=== PATIENT | male | born 1955 | race African-American/Black ===

== ENCOUNTER 2019-01-29 13:42 | Inpatient (IN) ==
[2019-01-29 14:43] LABS: Basophils % 0.5 % (0.0-0.8); Eosinophils # 0.1 10*3/uL (0.0-0.87); Eosinophils % 1.4 % (0.00-10.9); Hematocrit 41.1 VOL% (42.0-52.0); Hemoglobin 12.9 GM/DL (14.0-18.0); Immature Granulocytes % 0.3 %; Immature Granulocytes Absolute 0.02 #; Lymphocytes # 2.4 10*3/uL (1.4-4.0); Lymphocytes % 40.4 % (21.2-54.2); Mean Corpuscular HGB Conc 31.4 GM/DL (32-36); Mean Corpuscular Hemoglobin 28 PG (27-34); Mean Corpuscular Volume 89.9 FL (87-102); Mean Platelet Volume 9.5 FL (9.6-12.0); Monocytes % 17.1 % (1.7-12.7); Neutrophils # 2.4 10*3/uL (1.4-7.4); Neutrophils % 40.3 % (38.7-73.9); Platelet Count 236 T/CUMM (130-400); Red Blood Count 4.57 MC/CUMM (3.8-5.5); Red Cell Distribution Width 17.2 % (9.3-17.3); White Blood Count 5.9 T/CUMM (4-12)
[2019-01-29 14:50] LABS: Apearance,Urine CLEAR (Clear); Bilirubin,Urine Negative (Negative); Blood, Urine Negative (Negative); Glucose,Urine (UA) Negative (Negative); Hyaline Casts,Urine 5 /LPF (0-3); Ketones,Urine Negative (Negative); Mucus,Urine Occasional /LPF (Occasional); Nitrite,Urine Negative (Negative); Protein,Urine 100 MG/DL; RBC,Urine 2 /HPF (0-4); Squamous Epithelial Cell,Urine Occasional /HPF (0-10); Urine Color Yellow (Yellow); Urine Specific Gravity 1.024 (1.001-1.035); WBC,Urine 7 /HPF (0-6)
[2019-01-29 14:55] LABS: INR 1.7; PT Patient Result 18.8 SECS; Partial Thromboplastin Time 30.1 SECS (0-40)
[2019-01-29 15:07] LABS: Barbiturates Screen,Urine Negative (Negative); Benzodiazepines Screen,Urine Negative (Negative); Cannabinoid Screen,Urine Negative (Negative); Opiate Screen,Urine Negative (Negative); Phencyclidine Screen,Urine Negative (Negative)
[2019-01-29 15:10] LABS: Alanine Aminotransferase 30 U/L (16-61); Albumin 3.4 G/DL (3.4-5.0); Alkaline Phosphatase 121 U/L (45-117); Aspartate Amino Transferase 33 U/L (0-37); Blood Urea Nitrogen 31 MG/DL (7-18); Calcium 8.6 MG/DL (8.5-10.1); Glucose 171 MG/DL (74-106); Osmolality,Calculated 287.5 MOS/KG (273-304); Potassium 4.7 MMOL/L (3.5-5.1); Sodium 139 MMOL/L (136-145); Total Protein 7.6 G/DL (6.4-8.3)
[2019-01-29] MEDS ORDERED: ACETAMINOPHEN 500 MG TABLET ONE (15:52)
[2019-01-29] MEDS ORDERED: ACETAMINOPHEN 500 MG TABLET PO STA (15:55)
[2019-01-29 15:57] LABS: Eosinophils 5 % (0-10); Lymphocytes 45 % (20-55); Platelet Estimate Normal; Segmented Neutrophils 39 % (50-85)
[2019-01-29 15:58] LABS: Ovalocytes 2+
[2019-01-29 15:59] LABS: Anisocytosis 2+; Macrocytosis 1+; Microcytosis Slight
[2019-01-29 16:02] LABS: Polychromasia Slight; Spherocytes 1+; Total Cells Counted 100
[2019-01-29] MEDS ORDERED: DEXTROSE 50% 25 GM/50 ML VIAL IV PRN (17:57)
[2019-01-29] MEDS ORDERED: GLUCAGON 1 MG VIAL IM PRN (17:57)
[2019-01-29] MEDS ORDERED: ACETAMINOPHEN 325 MG TABLET PO PRN (17:57)
[2019-01-29] MEDS ORDERED: ONDANSETRON 4 MG/2 ML VIAL IV PRN (17:57)
[2019-01-29] MEDS ORDERED: MAGNESIUM HYDROXIDE SUSP 30 ML UDCUP PO PRN (17:57)
[2019-01-29] MEDS ORDERED: WARFARIN 5 MG TABLET PO STA (18:28)
[2019-01-29] MEDS: SODIUM CHLORIDE 0.9% 1,000 ML IV SCH (20:20)
[2019-01-29] MEDS: INSULIN LISPRO 100 UNIT/ML SUBCUT SCH (22:07)
[2019-01-29] MEDS: ASPIRIN EC 81 MG TABLET PO SCH (22:07)
[2019-01-29] MEDS: GABAPENTIN 300 MG CAPSULE PO SCH (22:07)
[2019-01-29] MEDS: DOCUSATE SODIUM 100 MG CAPSULE PO SCH (22:07)
[2019-01-30 04:50] LABS: INR 1.8
[2019-01-30 05:14] LABS: Calcium 8.3 MG/DL (8.5-10.1); Osmolality,Calculated 285.4 MOS/KG (273-304); Potassium 4.1 MMOL/L (3.5-5.1)
[2019-01-30 06:42] LABS: Folate 9.5 NG/ML (5.4-24.0)
[2019-01-30] MEDS: INSULIN LISPRO 100 UNIT/ML SUBCUT SCH ×4 (07:20→21:18)
[2019-01-30] MEDS: metFORMIN 500 MG TABLET PO SCH ×2 (10:40→19:03)
[2019-01-30] MEDS: SODIUM CHLORIDE 0.9% 1,000 ML IV SCH (10:40)
[2019-01-30] MEDS: SIMVASTATIN 40 MG TABLET PO SCH (10:41)
[2019-01-30] MEDS: PANTOPRAZOLE 40 MG TABLET PO SCH (10:41)
[2019-01-30] MEDS: GABAPENTIN 300 MG CAPSULE PO SCH ×2 (10:41→21:18)
[2019-01-30] MEDS: COLCHICINE 0.6 MG CAPSULE PO SCH (10:41)
[2019-01-30] MEDS: FLUoxetine 20 MG CAPSULE PO SCH (10:41)
[2019-01-30] MEDS: DOCUSATE SODIUM 100 MG CAPSULE PO SCH ×2 (10:42→21:18)
[2019-01-30] MEDS: CHOLECALCIFEROL 5,000 UNIT TABLET PO SCH (10:42)
[2019-01-30] MEDS: ALLOPURINOL 300 MG TABLET PO SCH (10:42)
[2019-01-30] MEDS: WARFARIN 10 MG TABLET PO SCH (19:03)
[2019-01-30] MEDS: ASPIRIN EC 81 MG TABLET PO SCH (21:18)
[2019-01-31 05:11] LABS: Basophils % 0.7 % (0.0-0.8); Eosinophils # 0.1 10*3/uL (0.0-0.87); Eosinophils % 3.2 % (0.00-10.9); Hematocrit 36.8 VOL% (42.0-52.0); Hemoglobin 11.5 GM/DL (14.0-18.0); Lymphocytes # 1.9 10*3/uL (1.4-4.0); Lymphocytes % 42.5 % (21.2-54.2); Mean Corpuscular HGB Conc 31.3 GM/DL (32-36); Mean Corpuscular Hemoglobin 28 PG (27-34); Mean Platelet Volume 10.8 FL (9.6-12.0); Monocytes # 0.7 10*3/uL (0.11-0.8); Monocytes % 16.7 % (1.7-12.7); Neutrophils # 1.6 10*3/uL (1.4-7.4); Neutrophils % 36.9 % (38.7-73.9); Platelet Count 224 T/CUMM (130-400); Red Blood Count 4.09 MC/CUMM (3.8-5.5); Red Cell Distribution Width 17.2 % (9.3-17.3); White Blood Count 4.4 T/CUMM (4-12)
[2019-01-31 06:33] LABS: Anisocytosis 1+; Eosinophils 4 % (0-10); Lymphocytes 40 % (20-55); Platelet Estimate Adequate; Segmented Neutrophils 42 % (50-85); Total Cells Counted 100
[2019-01-31 06:34] LABS: Macrocytosis Slight; Ovalocytes 1+
[2019-01-31] MEDS: INSULIN LISPRO 100 UNIT/ML SUBCUT SCH ×3 (08:28→16:12)
[2019-01-31] MEDS: SODIUM CHLORIDE 0.9% 1,000 ML IV SCH ×3 (09:16→22:35)
[2019-01-31] MEDS: COLCHICINE 0.6 MG CAPSULE PO SCH (09:18)
[2019-01-31] MEDS: ALLOPURINOL 300 MG TABLET PO SCH (09:18)
[2019-01-31] MEDS: PANTOPRAZOLE 40 MG TABLET PO SCH (09:18)
[2019-01-31] MEDS: CHOLECALCIFEROL 5,000 UNIT TABLET PO SCH (09:19)
[2019-01-31] MEDS: GABAPENTIN 300 MG CAPSULE PO SCH ×2 (09:19→21:32)
[2019-01-31] MEDS: FLUoxetine 20 MG CAPSULE PO SCH (09:19)
[2019-01-31] MEDS: DOCUSATE SODIUM 100 MG CAPSULE PO SCH ×2 (09:19→21:33)
[2019-01-31] MEDS: metFORMIN 500 MG TABLET PO SCH ×2 (09:19→17:44)
[2019-01-31] MEDS: SIMVASTATIN 40 MG TABLET PO SCH (09:19)
[2019-01-31] MEDS: WARFARIN 10 MG TABLET PO SCH (17:43)
[2019-01-31] MEDS: ASPIRIN EC 81 MG TABLET PO SCH (21:32)
[2019-02-01] MEDS: INSULIN LISPRO 100 UNIT/ML SUBCUT SCH ×5 (04:29→20:15)
[2019-02-01 06:01] LABS: Basophils % 0.5 % (0.0-0.8); Eosinophils # 0.2 10*3/uL (0.0-0.87); Eosinophils % 4.6 % (0.00-10.9); Hematocrit 37.5 VOL% (42.0-52.0); Hemoglobin 11.5 GM/DL (14.0-18.0); Lymphocytes # 1.6 10*3/uL (1.4-4.0); Lymphocytes % 39.6 % (21.2-54.2); Mean Corpuscular HGB Conc 30.7 GM/DL (32-36); Mean Corpuscular Hemoglobin 28 PG (27-34); Mean Corpuscular Volume 91.2 FL (87-102); Mean Platelet Volume 11.2 FL (9.6-12.0); Monocytes # 0.8 10*3/uL (0.11-0.8); Monocytes % 20.8 % (1.7-12.7); Neutrophils # 1.4 10*3/uL (1.4-7.4); Neutrophils % 34.5 % (38.7-73.9); Platelet Count 226 T/CUMM (130-400); Red Blood Count 4.11 MC/CUMM (3.8-5.5); Red Cell Distribution Width 17.2 % (9.3-17.3); White Blood Count 3.9 T/CUMM (4-12)
[2019-02-01 06:07] LABS: INR 1.8; PT Patient Result 19.7 SECS
[2019-02-01 06:23] LABS: Eosinophils 4 % (0-10); Hypochromasia 1+; Lymphocytes 37 % (20-55); Segmented Neutrophils 38 % (50-85); Total Cells Counted 100
[2019-02-01 06:24] LABS: Microcytosis 1+; Ovalocytes Slight; Platelet Estimate Normal
[2019-02-01 06:27] LABS: Calcium 8.3 MG/DL (8.5-10.1); Potassium 4.6 MMOL/L (3.5-5.1)
[2019-02-01] MEDS: metFORMIN 500 MG TABLET PO SCH ×2 (08:47→17:04)
[2019-02-01] MEDS: GABAPENTIN 300 MG CAPSULE PO SCH ×2 (08:48→20:13)
[2019-02-01] MEDS: PANTOPRAZOLE 40 MG TABLET PO SCH (08:48)
[2019-02-01] MEDS: COLCHICINE 0.6 MG CAPSULE PO SCH (08:48)
[2019-02-01] MEDS: SIMVASTATIN 40 MG TABLET PO SCH (08:48)
[2019-02-01] MEDS: DOCUSATE SODIUM 100 MG CAPSULE PO SCH ×2 (08:48→20:13)
[2019-02-01] MEDS: CHOLECALCIFEROL 5,000 UNIT TABLET PO SCH (08:48)
[2019-02-01] MEDS: ALLOPURINOL 300 MG TABLET PO SCH (08:48)
[2019-02-01] MEDS: FLUoxetine 20 MG CAPSULE PO SCH (08:56)
[2019-02-01] MEDS: SODIUM CHLORIDE 0.9% 1,000 ML IV SCH (13:54)
[2019-02-01] MEDS: WARFARIN 10 MG TABLET PO SCH (17:04)
[2019-02-01] MEDS: ASPIRIN EC 81 MG TABLET PO SCH (20:13)
[2019-02-02] MEDS: SODIUM CHLORIDE 0.9% 1,000 ML IV SCH (02:56)
[2019-02-02 08:18] VITALS: BP 148/83
[2019-02-02] MEDS: CHOLECALCIFEROL 5,000 UNIT TABLET PO SCH (08:40)
[2019-02-02] MEDS: metFORMIN 500 MG TABLET PO SCH (08:40)
[2019-02-02] MEDS: COLCHICINE 0.6 MG CAPSULE PO SCH (08:40)
[2019-02-02] MEDS: PANTOPRAZOLE 40 MG TABLET PO SCH (08:40)
[2019-02-02] MEDS: GABAPENTIN 300 MG CAPSULE PO SCH (08:41)
[2019-02-02] MEDS: DOCUSATE SODIUM 100 MG CAPSULE PO SCH (08:41)
[2019-02-02] MEDS: SIMVASTATIN 40 MG TABLET PO SCH (08:41)
[2019-02-02] MEDS: ALLOPURINOL 300 MG TABLET PO SCH (08:41)
[2019-02-02] MEDS: INSULIN LISPRO 100 UNIT/ML SUBCUT SCH (08:42)
[2019-02-02] MEDS: FLUoxetine 20 MG CAPSULE PO SCH (08:43)
[2019-02-02] MEDS ORDERED: CARBIDOPA/LEVODOPA 25-100 MG TABLET PO SCH (15:00)
[2019-02-02] MEDS ORDERED: WARFARIN 5 MG TABLET PO SCH (18:00)
== END 2019-02-02 11:18 | disposition home or self-care (01) | DRG 69 ==
LOC: N.ED 13:42 → N.EDINP 17:57 → N.4E 19:07
PROVIDERS: ADMIT Internal Medicine; ATTEND Internal Medicine

== ENCOUNTER 2019-04-14 07:00 | Inpatient (IN) ==
[2019-04-12 12:22] LABS: Basophils % 0.5 % (0.0-0.8); Eosinophils # 0.1 10*3/uL (0.0-0.87); Eosinophils % 3.1 % (0.00-10.9); Hematocrit 39.8 VOL% (42.0-52.0); Hemoglobin 12.2 GM/DL (14.0-18.0); Immature Granulocytes % 0.2 %; Immature Granulocytes Absolute 0.01 #; Lymphocytes # 1.7 10*3/uL (1.4-4.0); Lymphocytes % 39.9 % (21.2-54.2); Mean Corpuscular HGB Conc 30.7 GM/DL (32-36); Mean Corpuscular Volume 90.2 FL (87-102); Mean Platelet Volume 10.2 FL (9.6-12.0); Monocytes % 12.4 % (1.7-12.7); Neutrophils % 43.9 % (38.7-73.9); Platelet Count 222 T/CUMM (130-400); Red Blood Count 4.41 MC/CUMM (3.8-5.5); White Blood Count 4.2 T/CUMM (4-12)
[2019-04-12 12:43] LABS: Albumin 3.5 G/DL (3.4-5.0); Bilirubin,Total 0.5 MG/DL (0.2-1.0); Calcium 9.4 MG/DL (8.5-10.1); Osmolality,Calculated 281.5 MOS/KG (273-304); Total Protein 7.9 G/DL (6.4-8.3)
[2019-04-21] MEDS ORDERED: ceFAZolin 1,000 MG in SYRINGE 1 EACH IV ONE (06:00)
[2019-04-21] MEDS ORDERED: FAMOTIDINE 20 MG TABLET PO ONE (06:00)
[2019-04-21] MEDS ORDERED: DIAZEPAM 5 MG TABLET PO ONE (06:00)
[2019-04-21] MEDS: SODIUM CHLORIDE 0.9% 1,000 ML IV SCH (06:45)
[2019-04-21] MEDS ORDERED: HEPARIN/NACL 0.9% 2 UNITS/ML 500 ML IV ONE (06:49)
[2019-04-21] MEDS ORDERED: DIAZEPAM 5 MG TABLET ONE (06:52)
[2019-04-21] MEDS ORDERED: ceFAZolin 1,000 MG VIAL ONE (06:52)
[2019-04-21] MEDS ORDERED: FAMOTIDINE 20 MG TABLET ONE (06:52)
[2019-04-21 06:55] LABS: PT Patient Result 11.3 SECS; Partial Thromboplastin Time 26.1 SECS (0-40)
[2019-04-21] MEDS ORDERED: HEPARIN 5,000 UNIT/1 ML VIAL ONE (06:56)
[2019-04-21] MEDS ORDERED: LIDOCAINE 2% TOP JELLY 20 ML VIAL INTRAURETH ONE (06:56)
[2019-04-21] MEDS ORDERED: VANCOMYCIN 500 MG VIAL ONE (06:57)
[2019-04-21] MEDS ORDERED: THROMBIN TOPICAL (RECOMBINANT) 5,000 UNIT VIAL TOP ONE (06:57)
[2019-04-21] MEDS ORDERED: LIDOCAINE 1% 20 ML VIAL ONE (06:57)
[2019-04-21] MEDS ORDERED: HEPARIN/NACL 0.9% 2 UNITS/ML 3,000 ML IV ONE (07:00)
[2019-04-21] MEDS ORDERED: HYDROmorphone 2 MG/1 ML VIAL IV PRN (09:59)
[2019-04-21] MEDS ORDERED: ONDANSETRON 4 MG/2 ML VIAL IV PRN (09:59)
[2019-04-21] MEDS ORDERED: NITROGLYCERIN SL 0.4 MG TABLET SL PRN (10:03)
[2019-04-21] MEDS ORDERED: ACETAMINOPHEN 500 MG TABLET PO PRN (10:03)
[2019-04-21] MEDS ORDERED: SUGAMMADEX 200 MG/2 ML VIAL IV ONE (10:22)
[2019-04-21 10:35] LABS: Amorphous Crystals,Urine Few /HPF (Few); Apearance,Urine CLEAR (Clear); Bilirubin,Urine Negative (Negative); Blood, Urine Moderate mg/dL (Negative); Glucose,Urine (UA) Negative (Negative); Ketones,Urine Negative (Negative); Mucus,Urine Occasional /LPF (Occasional); Nitrite,Urine Negative (Negative); Protein,Urine 30 MG/DL; Squamous Epithelial Cell,Urine Occasional /HPF (0-10); Urine Color Yellow (Yellow); Urine Specific Gravity 1.018 (1.001-1.035); Urine Urobilinogen < 2.0 EU/DL (0.2-1.0); WBC,Urine <1 /HPF (0-6)
[2019-04-21] MEDS ORDERED: PHENYLEPHRINE 10 MG/1 ML VIAL IV ONE (14:56)
[2019-04-21] MEDS ORDERED: fentaNYL 100 MCG/2 ML VIAL ONE (14:56)
[2019-04-21] MEDS ORDERED: ONDANSETRON 4 MG/2 ML VIAL ONE (14:56)
[2019-04-21] MEDS ORDERED: SEVOFLURANE 1 UNIT/15 MINUTE INH ONE (14:56)
[2019-04-21] MEDS ORDERED: PROPOFOL 200 MG/20 ML VIAL IV ONE (14:56)
[2019-04-21] MEDS ORDERED: SODIUM CHLORIDE 0.9% 2,000 ML IV ONE (14:57)
[2019-04-21] MEDS ORDERED: HEPARIN 10,000 UNIT/10 ML VIAL ONE (14:57)
[2019-04-21] MEDS ORDERED: NEOSTIGMINE 10 MG/10 ML VIAL ONE (14:57)
[2019-04-21] MEDS ORDERED: GLYCOPYRROLATE 0.4 MG/2 ML VIAL ONE (14:57)
[2019-04-21] MEDS ORDERED: SODIUM CHLORIDE 0.9% 250 ML IV ONE (14:57)
[2019-04-21] MEDS ORDERED: ROCURONIUM 100 MG/10 ML VIAL IV ONE (14:57)
[2019-04-21] MEDS ORDERED: PHENYLEPHRINE 1 MG/10 ML SYRINGE IV ONE (14:57)
[2019-04-21] MEDS: CARBIDOPA/LEVODOPA 25-100 MG TABLET PO SCH ×2 (15:13→21:32)
[2019-04-21] MEDS: LACTATED RINGERS 1,000 ML IV SCH ×2 (18:43→19:10)
[2019-04-21] MEDS ORDERED: ASPIRIN EC 81 MG TABLET PO SCH (21:00)
[2019-04-21] MEDS: COLCHICINE 0.6 MG CAPSULE PO SCH (21:31)
[2019-04-21] MEDS: GABAPENTIN 300 MG CAPSULE PO SCH (21:32)
[2019-04-22] MEDS: LACTATED RINGERS 1,000 ML IV SCH ×3 (01:37→12:31)
[2019-04-22 04:52] LABS: Hematocrit 33.2 VOL% (42.0-52.0); Hemoglobin 10.2 GM/DL (14.0-18.0)
[2019-04-22 05:12] LABS: Calcium 8.6 MG/DL (8.5-10.1)
[2019-04-22] MEDS: SODIUM CHLORIDE 0.9% 1,000 ML IV SCH (07:37)
[2019-04-22] MEDS ORDERED: WARFARIN 5 MG TABLET PO SCH (09:00)
[2019-04-22] MEDS ORDERED: ALLOPURINOL 300 MG TABLET PO SCH (09:00)
[2019-04-22] MEDS ORDERED: ROSUVASTATIN 20 MG TABLET PO SCH (09:00)
[2019-04-22] MEDS ORDERED: FLUoxetine 20 MG CAPSULE PO SCH (09:00)
[2019-04-22] MEDS: COLCHICINE 0.6 MG CAPSULE PO SCH (09:02)
[2019-04-22] MEDS: GABAPENTIN 300 MG CAPSULE PO SCH (09:03)
[2019-04-22] MEDS: CARBIDOPA/LEVODOPA 25-100 MG TABLET PO SCH (09:03)
[2019-04-22 11:58] VITALS: BP 136/85
== END 2019-04-22 13:20 | disposition home or self-care (01) | DRG 269 ==
LOC: N.SDSINP 04-21 05:55 → N.3E 04-21 10:21
PROVIDERS: ADMIT Surgery; ATTEND Surgery
PROC: IRERAAA (2019-04-21 08:02)